=== PATIENT | male | born 1950 | race Caucasian/White ===

== ENCOUNTER 2017-03-07 08:44 | Emergency (ER) | payer OTHER ==
[~2017-03-07] VITALS: Ht 185.4 cm; Wt 105.0 kg
[2017-03-07] MEDS ORDERED: IOHEXOL 350 MG/ML 10 ML VIAL (for RAD DIAG) IVCONTRAST ONE (08:45)
[2017-03-07 08:48] VITALS: BP 189/109; PULSE 75; RESP 18; TEMP 97.8; O2SAT 99
[2017-03-07] MEDS ORDERED: ONDANSETRON HCL 4 MG/2 ML VIAL IV PUSH ONE (09:00)
[2017-03-07] MEDS ORDERED: MORPHINE SULFATE 4 MG/ML INJ IV PUSH ONE ×2 (09:00→10:00)
[2017-03-07] MEDS ORDERED: SODIUM CHLOR 0.9% 1000 ML INJ 1,000 ML IV SCH (09:00)
--- NOTE | 2017-03-07 09:00 | PD ---
HPI Chief Complaint: Abdominal Pain Time Seen by Provider: 08:52 Travel History International Travel<30 days: No Contact w/Intl Traveler<30days: No Traveled to known affect area: No History of Present Illness HPI 66-year-old male complains of abdominal pain. Patient states that the abdominal pain started last night. Patient states the pain is cramping pain and sharp pain started at the lower abdomen with radiation to the epigastric area and lower chest area. Patient denies any fever chills. Patient states that he has nausea but no vomiting or diarrhea. Patient has history of chronic constipation. Patient denies any headache. Patient denies any neck pain. Patient denies any shortness of breath. Patient denied dysuria or frequency. Patient denies any fever chills. Patient has history of kidney cancer status post left nephrectomy. PFSH Past Medical History High Cholesterol: Yes GERD: Yes Hypertension: Yes Psychiatric: Yes (PTSD) Past Surgical History Genitourinary Surgery: Yes (KIDNEY CA) Prostatectomy: Yes Tonsillectomy: Yes Social History Alcohol Use: Yes (OCC) Tobacco Use: No Substance Use: No Allergies-Medications (Allergen,Severity, Reaction): Coded Allergies: No Known Allergies (Unverified , 03/07/17) Reported Meds & Prescriptions Reported Meds & Active Scripts Active Reported Omeprazole 20 Mg Tab 20 Mg PO DAILY Amlodipine (Amlodipine Besylate) 10 Mg Tab 10 Mg PO DAILY Metoprolol Tartrate 25 Mg Tab 25 Mg PO BID Docusate Sodium-Senna (Sennosides-Docusate Sodium) 8.6-50 Mg Tab 2 Tab PO HS Tamsulosin (Tamsulosin HCl) 0.4 Mg Cap 0.4 Mg PO HS Atorvastatin (Atorvastatin Calcium) 20 Mg Tab 20 Mg PO HS Finasteride 5 Mg Tab 5 Mg PO DAILY Do not crush. Paroxetine (Paroxetine HCl) 20 Mg Tab 20 Mg PO DAILY Trospium ER 60 Mg Cap 20 Mg PO DAILY Lisinopril 40 Mg Tab 40 Mg PO DAILY Review of Systems General / Constitutional: No: Fever Eyes: No: Visual changes HENT: No: Headaches Cardiovascular: No: Chest Pain or Discomfort Respiratory: No: Shortness of Breath Gastrointestinal: Positive: Abdominal Pain Genitourinary: No: Dysuria Musculoskeletal: No: Pain Skin: No Rash Neurologic: No: Weakness Psychiatric: No: Depression Endocrine: No: Polydipsia Hematologic/Lymphatic: No: Easy Bruising Physical Exam Narrative GENERAL: Well-nourished, well-developed patient. SKIN: Focused skin assessment warm/dry. HEAD: Normocephalic. EYES: No scleral icterus. No injection or drainage. NECK: Supple, trachea midline. No JVD or lymphadenopathy. CARDIOVASCULAR: Regular rate and rhythm without murmurs, gallops, or rubs. RESPIRATORY: Breath sounds equal bilaterally. No accessory muscle use. GASTROINTESTINAL: Abdomen soft, nondistended. Patient has moderate tenderness on palpation epigastric and lower abdomen. No rebound tenderness. No mass. MUSCULOSKELETAL: No cyanosis, or edema. BACK: Nontender without obvious deformity. No CVA tenderness. Neurologic exam normal. Data Data Last Documented VS Vital Signs Date Time Temp Pulse Resp B/P (MAP) Pulse Ox O2 Delivery O2 Flow Rate FiO2 03/07/17 08:57 18 03/07/17 08:48 97.8 75 189/109 (135) 99 Orders Orders Electrocardiogram (03/07/17 08:52) Complete Blood Count With Diff (03/07/17 08:52) Comprehensive Metabolic Panel (03/07/17 08:52) Creatine Kinase (Cpk) (03/07/17 08:52) Troponin I (03/07/17 08:52) B-Type Natriuretic Peptide (03/07/17 08:52) Prothrombin Time / Inr (Pt) (03/07/17 08:52) Act Partial Throm Time (Ptt) (03/07/17 08:52) Lipase (03/07/17 08:52) Urinalysis - C+S If Indicated (03/07/17 08:52) Chest, Single Ap (03/07/17 08:52) Ct Abd/Pel W Iv Contrast(Rout) (03/07/17 08:52) Iv Access Insert/Monitor (03/07/17 08:52) Ecg Monitoring (03/07/17 08:52) Oximetry (03/07/17 08:52) Morphine Inj (Morphine Inj) (03/07/17 09:00) Ondansetron Inj (Zofran Inj) (03/07/17 09:00) Sodium Chlor 0.9% 1000 Ml Inj (Ns 1000 M (03/07/17 09:00) Morphine Inj (Morphine Inj) (03/07/17 10:00) Pantoprazole (Protonix) (03/07/17 11:00) Al-Mag Hy-Si 40-40-4 Mg/Ml Liq (Mag-Al P (03/07/17 11:00) Dfvwd-Smppiy-Ojtazw-Pb Liq ( Liq (03/07/17 11:00) Labs Laboratory Tests Test 03/07/17 09:00 White Blood Count 11.4 TH/MM3 Red Blood Count 4.82 MIL/MM3 Hemoglobin 14.0 GM/DL Hematocrit 41.2 % Mean Corpuscular Volume 85.4 FL Mean Corpuscular Hemoglobin 29.0 PG Mean Corpuscular Hemoglobin Concent 34.0 % Red Cell Distribution Width 14.2 % Platelet Count 270 TH/MM3 Mean Platelet Volume 8.4 FL Neutrophils (%) (Auto) 68.9 % Lymphocytes (%) (Auto) 23.8 % Monocytes (%) (Auto) 5.5 % Eosinophils (%) (Auto) 1.3 % Basophils (%) (Auto) 0.5 % Neutrophils # (Auto) 7.9 TH/MM3 Lymphocytes # (Auto) 2.7 TH/MM3 Monocytes # (Auto) 0.6 TH/MM3 Eosinophils # (Auto) 0.2 TH/MM3 Basophils # (Auto) 0.1 TH/MM3 CBC Comment DIFF FINAL Differential Comment Prothrombin Time 10.3 SEC Prothromb Time International Ratio 0.9 RATIO Activated Partial Thromboplast Time 25.7 SEC Blood Urea Nitrogen 16 MG/DL Creatinine 1.28 MG/DL Random Glucose 128 MG/DL Total Protein 7.9 GM/DL Albumin 3.7 GM/DL Calcium Level 9.5 MG/DL Alkaline Phosphatase 124 U/L Aspartate Amino Transf (AST/SGOT) 13 U/L Alanine Aminotransferase (ALT/SGPT) 32 U/L Total Bilirubin 0.4 MG/DL Sodium Level 138 MEQ/L Potassium Level 3.7 MEQ/L Chloride Level 103 MEQ/L Carbon Dioxide Level 24.3 MEQ/L Anion Gap 11 MEQ/L Estimat Glomerular Filtration Rate 56 ML/MIN Total Creatine Kinase 107 U/L Troponin I LESS THAN 0.02 NG/ML B-Type Natriuretic Peptide 64 PG/ML Lipase 151 U/L MDM Medical Decision Making Medical Screen Exam Complete: Yes Emergency Medical Condition: Yes Interpretation(s) Last Impressions Chest X-Ray 03/07/17 0852 Signed Impressions: Service Date/Time: Tuesday, March 07, 2017 08:50 - CONCLUSION: No acute cardiopulmonary abnormality is identified. Jeancarlos Winters MD Abdomen/Pelvis CT 03/07/17 0852 Signed Impressions: Service Date/Time: Tuesday, March 07, 2017 09:49 - CONCLUSION: 1. No acute finding is identified in the abdomen or pelvis to explain the clinical symptoms. 2. Nonacute findings include bilateral renal cysts and mild atherosclerotic disease. Jeancarlos Winters MD 10:47 AM. CBC within normal limit. CMP within normal limit. Cardiac enzymes are normal. Differential Diagnosis Differential diagnosis including gastritis, PUD, pancreatitis, cholecystitis, colitis, UTI, pyelonephritis, nephrolithiasis, angina, [place], PE, pneumothorax. Narrative Course 66-year-old male with abdominal pain with radiation to the chest. Normal saline solution 100 cc an hour. Morphine 2 mg IV. Zofran 4 mg IV. Morphine 2 mg IV. Diagnosis Primary Impression: Abdominal pain Qualified Codes: R10.13 - Epigastric pain Additional Impression: Gastritis Qualified Codes: K29.00 - Acute gastritis without bleeding Patient Instructions: General Instructions Additional Instructions: Take medications as directed. Follow-up with personal physician and GI specialist. Return if persistent problem or worse. Med/Other Pt SpecificInfo: Prescription(s) given Scripts Sucralfate (Carafate) 1 Gram Tab 1 GM PO QID for Ulcer Prevention, #120 TAB 0 Refills On empty stomach Prov: Diogo Voss MD 03/07/17 Disposition: 01 DISCHARGE HOME Condition: Stable Diogo Voss MD Mar 07, 2017 09:00
[2017-03-07] MEDS ORDERED: FINA5TAB2 PO (09:04)
[2017-03-07] MEDS ORDERED: TAMS0.4C4 PO (09:04)
[2017-03-07] MEDS ORDERED: DOCU8.6T PO (09:04)
[2017-03-07] MEDS ORDERED: METO25TA3 PO (09:04)
[2017-03-07] MEDS ORDERED: AMLO10TA2 PO (09:04)
[2017-03-07] MEDS ORDERED: ATOR20TA15 PO (09:04)
[2017-03-07] MEDS ORDERED: TROS60CA2 PO (09:04)
[2017-03-07] MEDS ORDERED: LISI40TA PO (09:04)
[2017-03-07] MEDS ORDERED: PARO20TA2 PO (09:04)
[2017-03-07] MEDS ORDERED: OMEP20TA PO (09:04)
--- NOTE | 2017-03-07 09:13 | RADRPT ---
EXAM DATE/TIME: 03/07/2017 08:50 [facility] COMPARISON: No previous studies available for comparison. INDICATIONS : Short of breath MEDICAL HISTORY : None. SURGICAL HISTORY : None. ENCOUNTER: Initial ACUITY: 2 days PAIN SCORE: 0/10 LOCATION: chest FINDINGS: Portable AP view of the chest demonstrates a normal-sized cardiac silhouette. No effusion, consolidat ion, or pneumothorax is visualized. The bones and soft tissues demonstrate no acute abnormality. Ther e are changes of the thoracic spine. CONCLUSION: No acute cardiopulmonary abnormality is identified. Jeancarlos Winters MD on March 07, 2017 at 9:11 Board Certified Radiologist. This report was verified electronically.
[2017-03-07 09:15] LABS: AUTOMATED NEUTROPHIL # 7.9 TH/MM3 (1.8-7.7); BASOPHIL # 0.1 TH/MM3 (0-0.2); BASOPHIL % 0.5 % (0.0-2.0); EOSINOPHIL # 0.2 TH/MM3 (0-0.4); EOSINOPHIL % 1.3 % (0.0-4.0); HEMATOCRIT 41.2 % (39.0-51.0); HEMO FLAGS DIFF FINAL; LYMPH % 23.8 % (9.0-44.0); LYMPHOCYTE # 2.7 TH/MM3 (1.0-4.8); MEAN CELL VOLUME 85.4 FL (80.0-100.0); MONO % 5.5 % (0.0-8.0); NEUT % 68.9 % (16.0-70.0); PLATELET COUNT 270 TH/MM3 (150-450); RED BLOOD COUNT 4.82 MIL/MM3 (4.50-5.90); RED CELL DISTRIBUTION WIDTH 14.2 % (11.6-17.2); WHITE BLOOD COUNT 11.4 TH/MM3 (4.0-11.0)
[2017-03-07 09:23] LABS: APTT (PATIENT) 25.7 SEC (24.3-30.1); INTERNATIONAL NORMALIZED RATIO 0.9 RATIO; PROTHROMBIN TIME - PATIENT 10.3 SEC (9.8-11.6)
[2017-03-07 09:32] LABS: ANION GAP 11 MEQ/L (5-15); AST (GOT) 13 U/L (15-37); BICARBONATE 24.3 MEQ/L (21.0-32.0); BLOOD UREA NITROGEN 16 MG/DL (7-18); CHLORIDE 103 MEQ/L (98-107); GLOMERULAR FILTRATION RATE 56 ML/MIN (>89); POTASSIUM 3.7 MEQ/L (3.5-5.1); SODIUM (NA) 138 MEQ/L (136-145)
[2017-03-07 09:33] LABS: ALT (GPT) 32 U/L (12-78)
[2017-03-07 09:37] LABS: ALKALINE PHOSPHATASE 124 U/L (45-117); CREATINE KINASE 107 U/L (39-308); TOTAL BILIRUBIN ADULT 0.4 MG/DL (0.2-1.0)
--- NOTE | 2017-03-07 10:08 | RADRPT ---
EXAM DATE/TIME: 03/07/2017 09:49 [facility] COMPARISON: No previous studies available for comparison. INDICATIONS : Abdominal pain.Upper abdomen. IV CONTRAST: 50 cc Visipaque (iodixanol) IV ORAL CONTRAST: No oral contrast ingested. RADIATION DOSE: 18.90 CTDIvol (mGy) MEDICAL HISTORY : Gastroesophageal reflux disease. Hypertension. Kidney cancer SURGICAL HISTORY : Prostatectomy. Inguinal hernia repair. ENCOUNTER: Initial ACUITY: 1 day PAIN SCALE: 6/10 LOCATION: abdominal TECHNIQUE: Volumetric scanning of the abdomen and pelvis was performed. Using automated exposure control and ad justment of the mA and/or kV according to patient size, radiation dose was kept as low as reasonably achievable to obtain optimal diagnostic quality images. DICOM format image data is available electro nically for review and comparison. FINDINGS: LOWER LUNGS: The visualized lower lungs demonstrate no acute finding. LIVER: Mildly heterogeneous density without focal lesion. Density may indicate steatosis. There is no dilat ion of the biliary tree. No calcified gallstones. SPLEEN: Normal size without lesion. PANCREAS: Within normal limits. KIDNEYS: Left kidney is posteriorly displaced. There are multiple low density lesions in the kidneys bilateral ly measuring up to 6.3 cm on the right and 3.2 cm and the left. These lesions have density measuremen ts characteristic of a simple cyst. Some subcentimeter lesions are too small to characterize. No hydr onephrosis or stone is visualized. ADRENAL GLANDS: There is an incidental 7 mm nodule in the left adrenal gland. Right adrenal gland is normal. VASCULAR: There is no aortic aneurysm. There is mild atherosclerotic disease. BOWEL/MESENTERY: The stomach, small bowel, and colon demonstrate no acute abnormality. There is no free intraperitone al air or fluid. ABDOMINAL WALL: Within normal limits. RETROPERITONEUM: There is no lymphadenopathy. BLADDER: No wall thickening or mass. REPRODUCTIVE: Within normal limits. INGUINAL: There is no lymphadenopathy or hernia. MUSCULOSKELETAL: There is degenerative changes of the lumbar spine. CONCLUSION: 1. No acute finding is identified in the abdomen or pelvis to explain the clinical symptoms. 2. Nonacute findings include bilateral renal cysts and mild atherosclerotic disease. Jeancarlos Winters MD on March 07, 2017 at 10:02 Board Certified Radiologist. This report was verified electronically.
[2017-03-07] MEDS ORDERED: CARA1TAB6 PO (10:57)
[2017-03-07] MEDS ORDERED: PANTOPRAZOLE SOD 40 MG DELAYED RELEASE TAB PO ONE (11:00)
[2017-03-07] MEDS ORDERED: ATROPINE/SCOPOLAM/HYOSCYAM/PB ELIXIR 10 ML CUP PO ONE (11:00)
[2017-03-07] MEDS ORDERED: ALUMINUM/MAGNESIUM/SIMETH 30 ML CUP PO ONE (11:00)
[2017-03-07 11:21] LABS: BLOOD, URINE NEG (NEG); COMMENT (UR) CULT NOT INDICATED; CULTURE IF INDICATED CULT NOT INDICATED; GLUCOSE,URINE NEG (NEG); KETONE, URINE 10 mg/dL (NEG); MUCUS URINE FEW /lpf (OCC); NITRITE,URINE NEG (NEG); PH, URINE 8.5 (5.0-8.5); URINE COLOR LIGHT-YELLOW (YELLW/STRAW)
--- NOTE | 2017-03-07 17:58 | EKG ---
Date Performed: 03/07/2017 Time Performed: 08:55:49 PTAGE: 66 years EKG: Sinus rhythm POSSIBLE LEFT ATRIAL ENLARGEMENT BORDERLINE ECG NO PREVIOUS TRACING DOCTOR: Chevy Bertrand Interpretating Date/Time 03/07/2017 17:58:04
== END 2017-03-07 11:34 | disposition home or self-care (01) ==
LOC: NEPE 08:44
DX: R10.13 Epigastric pain (principal); K29.00 Acute gastritis without bleeding; R07.9 Chest pain, unspecified; R94.31 Abnormal electrocardiogram [ECG] [EKG]; I10 Essential (primary) hypertension; E78.00 Pure hypercholesterolemia, unspecified; Z87.19 Personal history of other diseases of the digestive system; Z86.59 Personal history of other mental and behavioral disorders; Z85.528 Personal history of other malignant neoplasm of kidney
CPT/HCPCS: 71010; 74177; 80053; 81001; 82550; 83690; 83880; 84484; 85025; 85610; 85730; 93005; 96374; 96375; 96376; 99285; J2270; J2405; J7030; Q9967

== ENCOUNTER 2017-09-29 16:00 | Observation (INO) | payer OTHER ==
[~2017-09-29] VITALS: Ht 185.4 cm; Wt 95.0 kg
[~2017-09-29 16:00] MED LIST: AMLO10TA2 PO; ATOR20TA15 PO; CARA1TAB6 PO; DOCU8.6T PO; FINA5TAB2 PO; LISI40TA PO; METO25TA3 PO; OMEP20TA93 PO; PARO20TA2 PO; TAMS0.4C4 PO; TROS60CA2 PO
[2017-09-29 16:35] VITALS: BP 92/52; PULSE 65; RESP 16; TEMP 97.6; O2SAT 96
[2017-09-29] MEDS ORDERED: TRAZ50TA12 PO (19:36)
[2017-09-29] MEDS ORDERED: PARO30TA2 PO (19:36)
[2017-09-29] MEDS ORDERED: TROS60CA2 PO (19:36)
[2017-09-29] MEDS ORDERED: CALC600T4 PO (19:40)
[2017-09-29] MEDS ORDERED: POLY17S PO (19:40)
[2017-09-29] MEDS ORDERED: ASPI1TAB57 PO (19:40)
[2017-09-29] MEDS ORDERED: PLAV75TA29 PO (19:40)
[2017-09-29] MEDS ORDERED: ISOS20TA PO (19:40)
[2017-09-29] MEDS ORDERED: DIAZ5TAB PO (19:40)
[2017-09-29] MEDS ORDERED: VITA100018 PO (19:40)
[2017-09-29 19:42] VITALS: BP_SYST 146; BP_DIAS 81; BP_DIAS 83; PULSE 60; RESP 18; O2SAT 97
[2017-09-29 20:22] LABS: BILIRUBIN, URINE NEG (NEG); BLOOD, URINE NEG (NEG); GLUCOSE,URINE NEG (NEG); HYALINE CAST, URINE 2 /lpf (RARE); KETONE, URINE NEG (NEG); MUCUS URINE FEW /lpf (OCC); NITRITE,URINE NEG (NEG); URINE COLOR YELLOW (YELLW/STRAW); URINE LEUKOCYTE ESTERASE NEG (NEG)
[2017-09-29 20:48] LABS: ALBUMIN 3.4 GM/DL (3.4-5.0); AST (GOT) 9 U/L (15-37); BICARBONATE 29.2 MEQ/L (21.0-32.0); BLOOD UREA NITROGEN 18 MG/DL (7-18); CALCIUM 9.4 MG/DL (8.5-10.1); CHLORIDE 104 MEQ/L (98-107); CREATININE 1.57 MG/DL (0.60-1.30); GLOMERULAR FILTRATION RATE 44 ML/MIN (>89); GLUCOSE,RANDOM 93 MG/DL (74-106); SODIUM (NA) 139 MEQ/L (136-145)
[2017-09-29 20:49] LABS: ALT (GPT) 20 U/L (12-78)
[2017-09-29 20:53] LABS: ALKALINE PHOSPHATASE 135 U/L (45-117); TOTAL BILIRUBIN ADULT 0.3 MG/DL (0.2-1.0); TOTAL PROTEIN 7.7 GM/DL (6.4-8.2); TROPONIN I LESS THAN 0.02 NG/ML (0.02-0.05)
--- NOTE | 2017-09-29 21:00 | RADRPT ---
EXAM DATE/TIME: 09/29/2017 20:00 [facility] COMPARISON: CHEST SINGLE AP, March 07, 2017, 8:50. INDICATIONS : Chest pain. MEDICAL HISTORY : None. SURGICAL HISTORY : None. ENCOUNTER: Initial ACUITY: 1 day PAIN SCORE: 0/10 LOCATION: Bilateral chest FINDINGS: Minimal bibasilar parenchymal changes worse on the left. Mild compensated cardiomegaly. No overt co ngestive failure. No pleural effusion. The portion of the bony skeleton visualized is unremarkable. CONCLUSION: Mild bibasilar probable changes worse in the left, new from comparison study. No chente lure Brett Small MD FACR on September 29, 2017 at 20:54 Board Certified Radiologist. This report was verified electronically.
[2017-09-29 21:01] VITALS: BP_SYST 146; BP_SYST 159; BP_DIAS 81; BP_DIAS 85; PULSE 62; RESP 16; O2SAT 96
[2017-09-29 21:30] VITALS: BP_SYST 106; BP_SYST 112; BP_SYST 146; BP_DIAS 56; BP_DIAS 71; BP_DIAS 85
[2017-09-29 21:53] LABS: AUTOMATED NEUTROPHIL # 4.4 TH/MM3 (1.8-7.7); BASOPHIL % 0.5 % (0.0-2.0); EOSINOPHIL # 0.3 TH/MM3 (0-0.4); EOSINOPHIL % 3.3 % (0.0-4.0); HEMATOCRIT 38.7 % (39.0-51.0); HEMOGLOBIN 12.8 GM/DL (13.0-17.0); LYMPH % 33.1 % (9.0-44.0); LYMPHOCYTE # 2.6 TH/MM3 (1.0-4.8); MEAN CELL VOLUME 84.1 FL (80.0-100.0); MEAN CORPUSCULAR HEMOGLOBIN 27.9 PG (27.0-34.0); MEAN CORPUSCULAR HGB CONC 33.1 % (32.0-36.0); MEAN PLATELET VOLUME 8.7 FL (7.0-11.0); MONOCYTE # 0.6 TH/MM3 (0-0.9); NEUT % 56.1 % (16.0-70.0); PLATELET COUNT 270 TH/MM3 (150-450); WHITE BLOOD COUNT 7.9 TH/MM3 (4.0-11.0)
--- NOTE | 2017-09-29 21:54 | PD ---
HPI Chief Complaint: Abnormal Results Time Seen by Provider: 19:20 Travel History International Travel<30 days: No Contact w/Intl Traveler<30days: No Traveled to known affect area: No History of Present Illness HPI Patient is a 67-year-old male who has history of coronary artery disease for which he had a stent placed in June of this year as well as 3 more stents placed in July of this year. Since that time he has had episodes of hypotension that have been documented by him in his daily journal 10 AM each morning he takes his BP and is constantly fluctuating but usually below 90/60 today was 75/50. Patient had been taken off of amlodipine as well as lisinopril thinking those meds were causing the hypotension. Patient is still on metoprolol 25 twice daily. Isosorbide 30 mg daily as well as Flomax 0.4 mg daily all of which could be lowering his BP. Today he is coming into the ER because again an episode of hypotension and dizziness. [facility] he is [facility] them for this problem but today and not in the last week the dizziness is generalized it is progressively getting worse the hypotension is getting worse and why he comes to the ER tonight. He also feels is not being served correctly at the [facility] for this issue denies shortness of breath or chest pain tonight however he has had chest pain over the last few days he reports. Patient took all of his medications about an hour prior to his BP reading which again was 75/50 in the ER he is hypertensive and then he is hypotensive he had orthostatics done his systolic went from 146 down to 106 his BP is very labile PFSH Past Medical History Depression: Yes High Cholesterol: Yes Coronary Artery Disease: Yes GERD: Yes Hypertension: Yes Psychiatric: Yes (PTSD) Past Surgical History Coronary Stent: Yes Genitourinary Surgery: Yes (KIDNEY CA) Prostatectomy: Yes Tonsillectomy: Yes Social History Alcohol Use: No Tobacco Use: No Substance Use: No Allergies-Medications (Allergen,Severity, Reaction): Coded Allergies: No Known Allergies (Unverified Allergy, Unknown, 09/29/17) Reported Meds & Prescriptions Reported Meds & Active Scripts Active Reported Vitamin D3 (Cholecalciferol) 1,000 Unit Tab 1,000 Units PO DAILY Calcium Carbonate 1,500 Mg Tab 1,500 Mg PO BID 1,500 mg calcium carbonate (600 mg elemental calcium) Aspirin 81 (Aspirin) 81 Mg Tabdr 81 Mg PO DAILY Polyethylene Glycol 3350 Powder (Polyethylene Glycol) 17 Gram Pow 17 Gm PO DAILY Isosorbide Mononitrate 20 Mg Tab 30 Mg PO DAILY Take 2 doses 7 hours apart. Diazepam 5 Mg Tab 5 Mg PO BID PRN Plavix (Clopidogrel Bisulfate) 75 Mg Tab 75 Mg PO DAILY Trospium ER 60 Mg Cap 20 Mg PO BID Trazodone (Trazodone HCl) 50 Mg Tab 50 Mg PO HS Paroxetine (Paroxetine HCl) 30 Mg Tab 30 Mg PO HS Omeprazole 20 Mg Tab 20 Mg PO DAILY Amlodipine (Amlodipine Besylate) 10 Mg Tab 10 Mg PO DAILY Metoprolol Tartrate 25 Mg Tab 25 Mg PO BID Docusate Sodium-Senna (Sennosides-Docusate Sodium) 8.6-50 Mg Tab 2 Tab PO HS Tamsulosin (Tamsulosin HCl) 0.4 Mg Cap 0.4 Mg PO HS Atorvastatin (Atorvastatin Calcium) 20 Mg Tab 20 Mg PO HS Finasteride 5 Mg Tab 5 Mg PO DAILY Do not crush. Trospium ER 60 Mg Cap 20 Mg PO DAILY Lisinopril 40 Mg Tab 40 Mg PO DAILY Review of Systems Except as stated in HPI: all other systems reviewed are Neg Cardiovascular: Positive: Other (hypotension episodes weakness ) Neurologic: Positive: Dizziness Physical Exam Narrative GENERAL: Patient is awake alert he is slowly slow to answer and reports forgetfulness SKIN: Warm and dry. HEAD: Atraumatic. Normocephalic. EYES: Pupils equal and round. No scleral icterus. No injection or drainage. ENT: No nasal bleeding or discharge. Mucous membranes pink and moist. NECK: Trachea midline. No JVD. CARDIOVASCULAR: Regular rate and rhythm. RESPIRATORY: No accessory muscle use. Patient has bibasilar crackles rales GASTROINTESTINAL: Abdomen soft, non-tender, nondistended. Hepatic and splenic margins not palpable. MUSCULOSKELETAL: Extremities without clubbing, cyanosis, or edema. No obvious deformities. NEUROLOGICAL: Awake and alert. No obvious cranial nerve deficits. Motor grossly within normal limits. Five out of 5 muscle strength in the arms and legs. Normal speech. PSYCHIATRIC: Appropriate mood and affect; insight and judgment normal. Data Data Last Documented VS Vital Signs Date Time Temp Pulse Resp B/P (MAP) Pulse Ox O2 Delivery O2 Flow Rate FiO2 09/29/17 21:30 60 146/85 (105) 62 112/71 (85) 65 106/56 (73) 09/29/17 21:01 16 96 Room Air 09/29/17 16:35 97.6 Orders Orders Urinalysis - C+S If Indicated (09/29/17 18:44) Electrocardiogram (09/29/17 19:39) Complete Blood Count With Diff (09/29/17 19:39) Comprehensive Metabolic Panel (09/29/17 19:39) Creatine Kinase (Cpk) (09/29/17 19:39) Troponin I (09/29/17 19:39) Lipase (09/29/17 19:39) Chest, Single Ap (09/29/17 19:39) B-Type Natriuretic Peptide (09/29/17 21:32) Admit Order (Ed Use Only) (09/29/17 22:59) Labs Laboratory Tests Test 09/29/17 18:45 09/29/17 19:45 09/29/17 21:26 Urine Color YELLOW Urine Turbidity CLEAR Urine pH 6.0 Urine Specific [place] 1.022 Urine Protein TRACE mg/dL Urine Glucose (UA) NEG mg/dL Urine Ketones NEG mg/dL Urine Occult Blood NEG Urine Nitrite NEG Urine Bilirubin NEG Urine Urobilinogen LESS THAN 2.0 MG/DL Urine Leukocyte Esterase NEG Urine RBC LESS THAN 1 /hpf Urine WBC 1 /hpf Urine Hyaline Casts 2 /lpf Urine Mucus FEW /lpf Microscopic Urinalysis Comment CULT NOT INDICATED Blood Urea Nitrogen 18 MG/DL Creatinine 1.57 MG/DL Random Glucose 93 MG/DL Total Protein 7.7 GM/DL Albumin 3.4 GM/DL Calcium Level 9.4 MG/DL Alkaline Phosphatase 135 U/L Aspartate Amino Transf (AST/SGOT) 9 U/L Alanine Aminotransferase (ALT/SGPT) 20 U/L Total Bilirubin 0.3 MG/DL Sodium Level 139 MEQ/L Potassium Level 3.7 MEQ/L Chloride Level 104 MEQ/L Carbon Dioxide Level 29.2 MEQ/L Anion Gap 6 MEQ/L Estimat Glomerular Filtration Rate 44 ML/MIN Total Creatine Kinase 43 U/L Troponin I LESS THAN 0.02 NG/ML Lipase 75 U/L White Blood Count 7.9 TH/MM3 Red Blood Count 4.60 MIL/MM3 Hemoglobin 12.8 GM/DL Hematocrit 38.7 % Mean Corpuscular Volume 84.1 FL Mean Corpuscular Hemoglobin 27.9 PG Mean Corpuscular Hemoglobin Concent 33.1 % Red Cell Distribution Width 15.0 % Platelet Count 270 TH/MM3 Mean Platelet Volume 8.7 FL Neutrophils (%) (Auto) 56.1 % Lymphocytes (%) (Auto) 33.1 % Monocytes (%) (Auto) 7.0 % Eosinophils (%) (Auto) 3.3 % Basophils (%) (Auto) 0.5 % Neutrophils # (Auto) 4.4 TH/MM3 Lymphocytes # (Auto) 2.6 TH/MM3 Monocytes # (Auto) 0.6 TH/MM3 Eosinophils # (Auto) 0.3 TH/MM3 Basophils # (Auto) 0.0 TH/MM3 CBC Comment DIFF FINAL Differential Comment B-Type Natriuretic Peptide 118 PG/ML [facility] Medical Decision Making Medical Screen Exam Complete: Yes Emergency Medical Condition: Yes Differential Diagnosis Frontal diagnosis includes medication reaction causing hypotension and bradycardia. Versus cardiac conduction issues versus hypovolemia versus interaction of multiple medications causing hypotension Narrative Course Patient has orthostatics were his systolic goes from 146 lying to 106 standing becomes dizzy and pale patient's EKG is normal sinus rhythm his troponin is less than 0.02 his H&H is normal there is no sign of anemia he will need to be admitted for reevaluation of his medication possibly he needs a discontinuation of isosorbide or decreasing in the metoprolol he also is on Flomax possibly needs echocardiogram admit to telemetry for intermittent hypotension Rao Barreto MD Sep 29, 2017 21:54
[2017-09-29] MEDS ORDERED: SODIUM CHLORIDE 0.9% FLUSH 10 ML FLUSH IV FLUSH PRN (23:30)
[2017-09-29] MEDS ORDERED: ACETAMINOPHEN 325 MG TAB PO PRN (23:30)
[2017-09-29] MEDS ORDERED: DIAZEPAM 5 MG TAB PO PRN (23:30)
[2017-09-29] MEDS ORDERED: ONDANSETRON HCL 4 MG/2 ML VIAL IVP PRN (23:30)
[2017-09-29] MEDS ORDERED: NALOXONE HCL 0.4 MG/ML AMP IV PUSH PRN (23:30)
[2017-09-29] MEDS ORDERED: PILL SPLITTER OTHER PRN (23:45)
[2017-09-30] VITALS (13 sets, daily range): BP systolic 109–222; BP diastolic 64–115; PULSE 59–98; RESP 14–20; TEMP 97.6–98.2; O2SAT 93–97
[2017-09-30] MEDS: ATORVASTATIN 20 MG TAB PO SCH ×2 (00:13→21:22)
[2017-09-30] MEDS: traZODone HCL 50 MG TAB PO SCH ×2 (00:13→21:22)
[2017-09-30] MEDS: DOCUSATE SODIUM 50 MG/SENNA 8.6 MG TAB PO SCH ×2 (00:14→21:22)
[2017-09-30] MEDS: PARoxetine HCL 20 MG TAB PO SCH ×2 (00:14→21:22)
--- NOTE | 2017-09-30 00:28 | HHI.HP ---
[facility] Admission Diagnosis HYPOTENSION DIZZINESS Diagnoses: Travel History International Travel<30 Days: No Contact w/Intl Traveler <30 Da: No Traveled to Known Affected Are: No History of Present Illness 67-year-old male with a past medical history significant for hypertension, coronary artery disease, prostate cancer and history of renal cell carcinoma presents to the emergency department for hypotension and syncopal event. The patient reports that for approximately the last month his blood pressure has been running in the 60s/40s. He endorses routine dizziness upon standing. He states that yesterday when he got out of bed to use the restroom he had a syncopal event while standing at the toilet. He states he lost consciousness and fell backward. Denies any head trauma or pain. Patient also endorses intermittent chest pain for the past 2-3 days. He states that is now resolved. He has accompanying shortness of breath. He also complains of constipation. No nausea/vomiting/diarrhea. No abdominal pain. No lateralizing signs/ symptoms. Review of Systems Except as stated in HPI: all other systems reviewed are Neg Past Family Social History Past Medical History Hypertension Coronary artery disease Prostate cancer History of renal cell carcinoma Hyperlipidemia Past Surgical History Stent 5 approximately 1 month ago Partial prostatectomy Partial left nephrectomy Reported Medications Reported Meds & Active Scripts Active Reported Vitamin D3 (Cholecalciferol) 1,000 Unit Tab 1,000 Units PO DAILY Calcium Carbonate 1,500 Mg Tab 1,500 Mg PO BID 1,500 mg calcium carbonate (600 mg elemental calcium) Aspirin 81 (Aspirin) 81 Mg Tabdr 81 Mg PO DAILY Polyethylene Glycol 3350 Powder (Polyethylene Glycol) 17 Gram Pow 17 Gm PO DAILY Isosorbide Mononitrate 20 Mg Tab 30 Mg PO DAILY Take 2 doses 7 hours apart. Diazepam 5 Mg Tab 5 Mg PO BID PRN Plavix (Clopidogrel Bisulfate) 75 Mg Tab 75 Mg PO DAILY Trospium ER 60 Mg Cap 20 Mg PO BID Trazodone (Trazodone HCl) 50 Mg Tab 50 Mg PO HS Paroxetine (Paroxetine HCl) 30 Mg Tab 30 Mg PO HS Omeprazole 20 Mg Tab 20 Mg PO DAILY Amlodipine (Amlodipine Besylate) 10 Mg Tab 10 Mg PO DAILY Metoprolol Tartrate 25 Mg Tab 25 Mg PO BID Docusate Sodium-Senna (Sennosides-Docusate Sodium) 8.6-50 Mg Tab 2 Tab PO HS Tamsulosin (Tamsulosin HCl) 0.4 Mg Cap 0.4 Mg PO HS Atorvastatin (Atorvastatin Calcium) 20 Mg Tab 20 Mg PO HS Finasteride 5 Mg Tab 5 Mg PO DAILY Do not crush. Trospium ER 60 Mg Cap 20 Mg PO DAILY Lisinopril 40 Mg Tab 40 Mg PO DAILY Allergies: Coded Allergies: No Known Allergies (Unverified Allergy, Unknown, 09/29/17) Family History Mother with CAD Social History Negative for tobacco. Rare alcohol. Denies illicit drugs. Physical Exam Vital Signs Vital Signs Date Time Temp Pulse Resp B/P (MAP) Pulse Ox O2 Delivery O2 Flow Rate FiO2 09/29/17 21:30 60 146/85 (105) 62 112/71 (85) 65 106/56 (73) 09/29/17 21:01 62 16 159/81 (107) 96 Room Air 146/85 (105) 09/29/17 19:42 60 18 146/81 (102) 97 Room Air 146/83 (104) 09/29/17 16:35 97.6 65 16 92/52 (65) 96 Physical Exam GENERAL: male sitting up in bed SKIN: No rashes, ecchymoses or lesions. Cool and dry. HEAD: Atraumatic. Normocephalic. No temporal or scalp tenderness. EYES: Pupils equal round and reactive. Extraocular motions intact. No scleral icterus. No injection or drainage. ENT: Nose without bleeding, purulent drainage or septal hematoma. Throat without erythema, tonsillar hypertrophy or exudate. Uvula midline. Airway patent. NECK: Trachea midline. No JVD or lymphadenopathy. Supple, nontender, no meningeal signs. CARDIOVASCULAR: Regular rate and rhythm without murmurs, gallops, or rubs. RESPIRATORY: Clear to auscultation. Breath sounds equal bilaterally. No wheezes , rales, or rhonchi. GASTROINTESTINAL: Abdomen soft, non-tender, nondistended. No hepato-splenomegaly , or palpable masses. No guarding. MUSCULOSKELETAL: Extremities without clubbing, cyanosis, or edema. No joint tenderness, effusion, or edema noted. No calf tenderness. NEUROLOGICAL: Awake and alert. Cranial nerves II through XII intact. Motor and sensory grossly within normal limits. Normal speech. Laboratory Laboratory Tests Test 09/29/17 18:45 09/29/17 19:45 09/29/17 21:26 Urine Color YELLOW Urine Turbidity CLEAR Urine pH 6.0 Urine Specific Fisk 1.022 Urine Protein TRACE Urine Glucose (UA) NEG Urine Ketones NEG Urine Occult Blood NEG Urine Nitrite NEG Urine Bilirubin NEG Urine Urobilinogen LESS THAN 2.0 Urine Leukocyte Esterase NEG Urine RBC LESS THAN 1 Urine WBC 1 Urine Hyaline Casts 2 Urine Mucus FEW Microscopic Urinalysis Comment CULT NOT INDICATED Blood Urea Nitrogen 18 Creatinine 1.57 Random Glucose 93 Total Protein 7.7 Albumin 3.4 Calcium Level 9.4 Alkaline Phosphatase 135 Aspartate Amino Transf (AST/SGOT) 9 Alanine Aminotransferase (ALT/SGPT) 20 Total Bilirubin 0.3 Sodium Level 139 Potassium Level 3.7 Chloride Level 104 Carbon Dioxide Level 29.2 Anion Gap 6 Estimat Glomerular Filtration Rate 44 Total Creatine Kinase 43 Troponin I LESS THAN 0.02 Lipase 75 White Blood Count 7.9 Red Blood Count 4.60 Hemoglobin 12.8 Hematocrit 38.7 Mean Corpuscular Volume 84.1 Mean Corpuscular Hemoglobin 27.9 Mean Corpuscular Hemoglobin Concent 33.1 Red Cell Distribution Width 15.0 Platelet Count 270 Mean Platelet Volume 8.7 Neutrophils (%) (Auto) 56.1 Lymphocytes (%) (Auto) 33.1 Monocytes (%) (Auto) 7.0 Eosinophils (%) (Auto) 3.3 Basophils (%) (Auto) 0.5 Neutrophils # (Auto) 4.4 Lymphocytes # (Auto) 2.6 Monocytes # (Auto) 0.6 Eosinophils # (Auto) 0.3 Basophils # (Auto) 0.0 CBC Comment DIFF FINAL Differential Comment B-Type Natriuretic Peptide 118 Result Diagram: 09/29/17212509/29/171944 Caprini VTE Risk Assessment Caprini VTE Risk Assessment: Mod/High Risk (score >= 2) Caprini Risk Assessment Model Point Value = 1 Point Value = 2 Point Value = 3 Point Value = 5 Age 41-60 Minor surgery BMI > 25 kg/m2 Swollen legs Varicose veins or History of unexplained or recurrent spontaneous Oral contraceptives or hormone replacement Sepsis (< 1 month) Serious lung disease, including pneumonia (< 1 month) Abnormal pulmonary function Acute myocardial infarction Congestive heart failure (< 1 month) History of inflammatory bowel disease Medical patient at bed rest Age 61-74 Arthroscopic surgery Major open surgery (> 45 min) Laparoscopic surgery (> 45 min) Malignancy Confined to bed (> 72 hours) Immobilizing plaster cast Central venous access Age >= 75 History of VTE Family history of VTE Factor V Leiden Prothrombin [id number] Lupus anticoagulant Anticardiolipin antibodies Elevated serum homocysteine Heparin-induced thrombocytopenia Other congenital or acquired thrombophilia Stroke (< 1 month) Elective arthroplasty Hip, pelvis, or leg fracture Acute spinal cord injury (< 1 month) Prophylaxis Regimen Total Risk Factor Score Risk Level Prophylaxis Regimen 0-1 Low Early ambulation 2 Moderate Order ONE of the following: *Sequential Compression Device (SCD) *Heparin 5000 units SQ BID 3-4 Higher Order ONE of the following medications: *Heparin 5000 units SQ TID *Enoxaparin/Lovenox 40 mg SQ daily (WT < 150 kg, CrCl > 30 mL/min) *Enoxaparin/Lovenox 30 mg SQ daily (WT < 150 kg, CrCl > 10-29 mL/min) *Enoxaparin/Lovenox 30 mg SQ BID (WT < 150 kg, CrCl > 30 mL/min) AND/OR *Sequential Compression Device (SCD) 5 or more Highest Order ONE of the following medications: *Heparin 5000 units SQ TID (Preferred with Epidurals) *Enoxaparin/Lovenox 40 mg SQ daily (WT < 150 kg, CrCl > 30 mL/min) *Enoxaparin/Lovenox 30 mg SQ daily (WT < 150 kg, CrCl > 10-29 mL/min) *Enoxaparin/Lovenox 30 mg SQ BID (WT < 150 kg, CrCl > 30 mL/min) AND *Sequential Compression Device (SCD) Assessment and Plan Assessment and Plan Assessment/plan: 1. Symptomatic hypotension with syncopal episode Orthostatic vital signs pending Holding home isosorbide mononitrate, metoprolol, amlodipine, lisinopril, Valium Telemetry Syncope likely secondary to hypotension 2. Chest pain Patient with cardiac history and 2-3 day history of chest pain Initial troponin negative EKG pending ACS rule out pending; serial troponins/EKG 3. Coronary artery disease Status post stenting Continue aspirin/Plavix 4. Hyperlipidemia Continue home statin 5. BPH/prostate cancer Continue home Flomax 6. Acute kidney injury Likely chronic component Creatinine 1.57, was 1.28 in February 2017 Monitor renal function IV fluid hydration FEN Heart healthy diet Electrolytes: Monitor and replete when necessary Heparin Maye Garrett MD Sep 30, 2017 00:28
[2017-09-30] MEDS: SODIUM CHLOR 0.9% 1000 ML INJ 1,000 ML IV SCH ×3 (01:19→21:23)
[2017-09-30] MEDS ORDERED: traMADol HCL 50 MG TAB PO ONE (02:00)
[2017-09-30 04:31] LABS: AUTOMATED NEUTROPHIL # 5.3 TH/MM3 (1.8-7.7); BASOPHIL % 0.2 % (0.0-2.0); EOSINOPHIL # 0.3 TH/MM3 (0-0.4); EOSINOPHIL % 3.3 % (0.0-4.0); HEMATOCRIT 36.8 % (39.0-51.0); HEMOGLOBIN 12.6 GM/DL (13.0-17.0); LYMPH % 32.7 % (9.0-44.0); LYMPHOCYTE # 3.1 TH/MM3 (1.0-4.8); MEAN CELL VOLUME 83.7 FL (80.0-100.0); MEAN CORPUSCULAR HEMOGLOBIN 28.7 PG (27.0-34.0); MEAN CORPUSCULAR HGB CONC 34.3 % (32.0-36.0); MEAN PLATELET VOLUME 8.7 FL (7.0-11.0); MONOCYTE # 0.7 TH/MM3 (0-0.9); NEUT % 56.8 % (16.0-70.0); PLATELET COUNT 256 TH/MM3 (150-450); RED BLOOD COUNT 4.39 MIL/MM3 (4.50-5.90); RED CELL DISTRIBUTION WIDTH 14.8 % (11.6-17.2); WHITE BLOOD COUNT 9.4 TH/MM3 (4.0-11.0)
[2017-09-30 04:59] LABS: BICARBONATE 28.9 MEQ/L (21.0-32.0); CALCIUM 8.7 MG/DL (8.5-10.1); CREATININE 1.43 MG/DL (0.60-1.30)
[2017-09-30 05:03] LABS: TROPONIN I LESS THAN 0.02 NG/ML (0.02-0.05)
[2017-09-30] MEDS: HEPARIN SODIUM - SQ 10,000 UNITS/ML VIAL SQ SCH ×3 (05:23→21:24)
[2017-09-30] MEDS ORDERED: POTASSIUM CHLORIDE 20 MEQ CONTROLLED RELEASE TAB PO ONE (08:00)
--- NOTE | 2017-09-30 09:17 | HHI.PR ---
Subjective Remarks Follow up for hypotension, syncope, chest pain. The patient reports feeling much better today. Denies any lightheadedness, dizziness, chest pain, or shortness of breath currently. He states he has been having intermittent lightheadedness associated with low BP at home. He states he contacted his physician who adjusted his meds however he is unable to tell me which meds were adjusted. He also reports over the past few weeks, he's had intermittent left anterior chest pains described as pressure, relieved with nitro. He states he had a cardiac catheterization with 5 stents placed just one month ago at the [facility] in [place]. He reports compliance with his medications. He denies any other medical complaints at this time. Objective Vitals Vital Signs Date Time Temp Pulse Resp B/P (MAP) Pulse Ox O2 Delivery O2 Flow Rate FiO2 09/30/17 08:33 97.6 64 18 206/103 (137) 95 181/87 (118) 109/64 (79) 09/30/17 05:09 98.1 59 14 174/77 (109) 97 09/30/17 04:03 60 09/30/17 01:30 98.2 62 14 170/81 (110) 96 09/30/17 00:47 09/30/17 00:18 64 18 168/85 (112) 95 Room Air 09/29/17 21:30 60 146/85 (105) 62 112/71 (85) 65 106/56 (73) 09/29/17 21:01 62 16 159/81 (107) 96 Room Air 146/85 (105) 09/29/17 19:42 60 18 146/81 (102) 97 Room Air 146/83 (104) 09/29/17 16:35 97.6 65 16 92/52 (65) 96 I/O 09/29/17 09/29/17 09/29/17 09/30/17 09/30/17 09/30/17 07:00 15:00 23:00 07:00 15:00 23:00 Intake Total 940 ml Balance 940 ml Intake Oral 940 ml Result Diagram: 09/30/17 0335 09/30/17 0335 Imaging Last Impressions Chest X-Ray 09/29/171938 Signed Impressions: Service Date/Time: Friday, September 29, 2017 20:00 - CONCLUSION: Mild bibasilar probable changes worse in the left, new from comparison study. No failure Brett Small MD FACR Objective Remarks GENERAL: Well-nourished, well-developed pleasant male patient in NAD. SKIN: Warm and dry. No rash. HEENT: Normocephalic. Atraumatic. Pupils equal and round. Mucous membranes pink and moist. NECK: Supple. Trachea midline. CARDIOVASCULAR: Regular rate and rhythm. No murmur appreciated. RESPIRATORY: No accessory muscle use. Clear to auscultation. Breath sounds equal bilaterally. GASTROINTESTINAL: Abdomen soft, non-tender, nondistended. Normoactive bowel sounds x4. MUSCULOSKELETAL: No obvious deformities. Extremities without clubbing, cyanosis , or edema. NEUROLOGICAL: Awake and alert. No obvious cranial nerve deficits. Motor grossly within normal limits. Normal speech. PSYCHIATRIC: Appropriate mood and affect; insight and judgment normal. Medications and IVs Current Medications Medications (Trade) Dose Ordered Sig/Tiffanie Route Start Time Stop Time Status Last Admin (NS Flush) 2 ml UNSCH PRN IV FLUSH 09/29/17 23:30 (NS Flush) 2 ml BID IV FLUSH 09/30/17 09:00 09/30/17 09:19 (Tylenol) 650 mg Q4H PRN PO 09/29/17 23:30 (Zofran Inj) 4 mg Q6H PRN IVP 09/29/17 23:30 (Heparin Inj) 5,000 units Q8HR SQ 09/30/17 06:00 09/30/17 05:23 (Narcan Inj) 0.4 mg UNSCH PRN IV PUSH 09/29/17 23:30 (Ecotrin Ec) 81 mg DAILY PO 09/30/17 09:00 09/30/17 09:20 (Lipitor) 20 mg HS PO 09/29/17 23:30 09/30/17 00:13 (Plavix) 75 mg DAILY PO 09/30/17 09:00 09/30/17 09:20 (Marlena-Colace) 2 tab HS PO 09/29/17 23:30 09/30/17 00:14 (Desyrel) 50 mg HS PO 09/29/17 23:30 09/30/17 00:13 (Protonix) 20 mg DAILY PO 09/30/17 09:00 09/30/17 09:20 (Paxil) 30 mg HS PO 09/29/17 23:45 09/30/17 00:14 (Detrol La) 4 mg DAILY PO 09/30/17 09:00 09/30/17 09:20 (Pill Splitter) 1 ea UNSCH PRN OTHER 09/29/17 23:45 Sodium Chloride 1,000 ml @ 100 mls/hr Q10H IV 09/30/17 00:30 09/30/17 09:25 (Miralax) 17 gm DAILY PO 09/30/17 09:15 09/30/17 09:23 A/P Assessment and Plan 67-year-old male with history of HTN, HLD, CAD s/p stents 5 placed one month ago, prostate cancer, previous renal cell carcinoma, presents with hypotension, syncope, and chest pain. Symptomatic Hypotension with Syncope: BP reportedly 60/40s at home, arrived with BP 92/52. Likely secondary to multiple antihypertensives. -Held all of patient's antihypertensives including imdur, metoprolol, amlodipine, lisinopril, and also hold patient's Valium -Orthostatic vital signs positive -Give IVF hydration -Monitor on telemetry -Check echocardiogram -Strongly suspect syncope secondary to hypotension; symptoms resolved with resolution of hypotension Chest pain with hx of CAD s/p stents: concern for unstable angina. Patient reported cardiac cath with 5stents placed 1 month ago. Now having intermittent chest pressure, relieved by nitro at home. -ACS ruled out with negative serial cardiac enzymes x3 -EKG without acute ischemic changes -Monitor on telemetry -Continue aspirin/plavix; holding BB/SMITA/Imdur secondary to hypotension -Check echo -Obtain records from previous cardiac catheterization at the [facility] -Consult cardiology Hyperlipidemia: chronic -Continue home statin BPH/prostate cancer: chronic -Continue home Flomax Acute kidney injury: likely chronic component. Creatinine 1.57, previously 1.28 in February 2017 -Avoid nephrotoxins -Monitor renal function -Continue IV fluid hydration DVT Prophylaxis: Heparin sq Lillian Gore PA-C Sep 30, 2017 9:17 am
[2017-09-30] MEDS: SODIUM CHLORIDE 0.9% FLUSH 10 ML FLUSH IV FLUSH SCH ×2 (09:19→21:00)
[2017-09-30] MEDS: PANTOPRAZOLE SOD 20 MG DELAYED RELEASE TAB PO SCH (09:20)
[2017-09-30] MEDS: CLOPIDOGREL 75 MG TAB PO SCH (09:20)
[2017-09-30] MEDS: ASPIRIN EC 81 MG TABEC PO SCH (09:20)
[2017-09-30] MEDS: TOLTERODINE TARTRATE 4 MG CAP LA PO SCH (09:20)
[2017-09-30] MEDS: POLYETHYLENE GLYCOL 17 GM PKG PO SCH (09:23)
[2017-09-30 10:17] LABS: TROPONIN I LESS THAN 0.02 NG/ML (0.02-0.05)
--- NOTE | 2017-09-30 13:46 | EKG ---
Date Performed: 09/29/2017 Time Performed: 19:35:20 PTAGE: 67 years EKG: Sinus rhythm WITH FIRST DEGREE AV BLOCK ABNORMAL ECG Since the PREVIOUS TRACING , no significant change noted PREVIOUS TRACIN03/07/2017 08.55 DOCTOR: Meryl Enamorado Interpretating Date/Time 09/30/2017 13:42:23
[2017-09-30] MEDS ORDERED: amLODIPine BESYLATE 5 MG TAB PO SCH (16:30)
--- NOTE | 2017-09-30 16:45 | ECHRPT ---
Indication: CHEST PAIN CONCLUSIONS The left ventricular systolic function is normal with an estimated ejection fraction in the range of 60-65%. Normal left ventricular size. Mild concentric left ventricular hypertrophy. No regional wall motion abnormalities are present. [id number]-[id number] mitral valve regurgitation. Mild aortic valve sclerosis is present. Trace-mild aortic regurgitation. BP: / HR: Rhythm: Sinus Technical Quality:Poor FINDINGS LEFT VENTRICLE The left ventricular systolic function is normal with an estimated ejection fraction in the range of 60-65%. Normal left ventricular size. Mild concentric left ventricular hypertrophy. No regional wall motion abnormalities are present. RIGHT VENTRICLE Normal right ventricular size and systolic function. LEFT ATRIUM The left atrial size is normal. RIGHT ATRIUM The right atrial size is normal. ATRIAL SEPTUM Normal atrial septal thickness without atrial level shunting by limited color doppler interrogation. AORTA The aortic root and proximal ascending aorta are normal in size on limited imaging. MITRAL VALVE Structurally normal mitral valve. Lssrz-nl-nuib mitral valve regurgitation. AORTIC VALVE Trileaflet aortic valve. Mild aortic valve sclerosis is present. Trace-mild aortic regurgitation. TRICUSPID VALVE Structurally normal tricuspid valve. No tricuspid valve stenosis or regurgitation. PULMONARY VALVE The pulmonary valve is not well visualized. VESSELS The inferior vena cava is normal in size. PERICARDIUM No pericardial effusion. Abdirahman Louis MD (Electronically Signed) Final Date:30 September 2017 16:44
--- NOTE | 2017-09-30 16:56 | MB ---
cc: Abdirahman Louis MD DATE: 09/30/2017 REASON FOR CONSULTATION: Dizziness, chest pain, syncope. HISTORY OF PRESENT ILLNESS: The patient is a 67-year-old white male with a history of coronary artery disease, apparently status post as many as 5 stents this year at the [facility], hyperlipidemia, hypertension, renal cancer, and transient ischemic attacks, who presented to the hospital, mainly with complaints of dizziness. The patient states for the past 3 months, he has had occasional episodes of lightheadedness, most often upon standing from the sitting position or upon getting out of bed. The lightheadedness however can last a fairly long time, even after standing. About 4 days ago while urinating, he felt severely lightheaded. When he pulled his pants up, he subsequently lost consciousness, he thinks just for a couple of seconds. Two months ago, he may have had a fleeting episode of syncope as well. The patient also reports intermittent episodes of left parasternal chest discomfort described as "just a pain." He is unclear as to the duration of these chest pains. Occasionally, they are associated with shortness of breath. He cannot recall whether these chest discomforts are similar to previous angina. In the last few days, he feels somewhat more dyspneic than usual. He denies pedal edema, paroxysmal nocturnal dyspnea, and palpitations. PAST MEDICAL HISTORY: 1. Coronary artery disease, status post possibly 5 stents this year at the [facility]. 2. Hyperlipidemia. 3. Hypertension. 4. Gastroesophageal reflux disease. 5. Left renal cancer, status post partial left nephrectomy. 6. Prostate cancer, status post prostatectomy. PAST SURGICAL HISTORY: 1. Prostatectomy. 2. Tonsillectomy. 3. Partial left nephrectomy. CARDIAC MEDICATIONS AT HOME: 1. Metoprolol 25 mg b.i.d. 2. Plavix 75 mg daily. 3. Isosorbide mononitrate 30 mg daily. 4. Aspirin 81 mg daily. 5. Atorvastatin 20 mg at bedtime. 6. The patient also was on amlodipine and lisinopril, which were stopped about 2 weeks ago due to complaints of hypotension. ALLERGIES: NO KNOWN DRUG ALLERGIES. FAMILY HISTORY: Noncontributory. SOCIAL HISTORY: The patient denies any history of alcohol or tobacco abuse. REVIEW OF SYSTEMS: As in the history of present illness, otherwise negative or noncontributory. He also denies headache, visual changes, unilateral weakness or numbness, abdominal pain, melena, and dyspepsia. Infrequently, he does experience bright red blood per rectum. PHYSICAL EXAMINATION: VITAL SIGNS: Blood pressure 208/103 with a pulse of 69, respirations 18. GENERAL: He is a well-developed, well-nourished white male, in no acute distress. NECK: Jugular venous pressure is normal. Carotid pulses are 2+ bilaterally without bruits. CHEST: Reveals clear lungs bah. CARDIAC: He has a regular rhythm and rate without S3, S4, or murmur. ABDOMEN: He has a soft, nontender abdomen. Bowel sounds are present. There is no definite hepatosplenomegaly. EXTREMITIES: Reveals no clubbing, cyanosis, or edema. DIAGNOSTIC STUDIES: EKG shows normal sinus rhythm, left atrial abnormality. Laboratory data includes WBC 9.4, hemoglobin 12.6, platelets 256. Potassium 3.1, BUN 18, creatinine 1.43. Negative cardiac enzymes. Chest x-ray shows minimal bibasilar parenchymal changes. IMPRESSION: Lightheadedness, recent syncope, overall atypical chest pains in this 67-year-old white male with a history of coronary artery disease, hyperlipidemia, hypertension, renal and prostate cancers. Much of his symptomatology with respect to lightheadedness and his recent syncope seems related to orthostatic-like symptoms. On the other hand, he has noticed no significant improvement in his symptoms after stopping lisinopril and amlodipine about 2 weeks ago. He has been maintained on metoprolol. He is mildly bradycardic on monitoring with no evidence for high degree atrioventricular block. The patient is now hypertensive. With respect to his chest discomforts, he is somewhat of a vague historian. They appear to be overall atypical for myocardial ischemia. On the other hand, he has had a number of percutaneous coronary interventions this year. EKG shows no acute abnormalities. RECOMMENDATIONS: 1. Continue his aspirin and Plavix. 2. Would try to resume amlodipine given his hypertension. 3. Check a Lexiscan nuclear stress test in the morning. 4. Consider the use of Florinef. MD ZAY Tello/BRETT , 04:30 PM , 04:55 PM ROD
[2017-09-30] MEDS ORDERED: DIAZEPAM 5 MG TAB PO ONE (17:30)
[2017-09-30] MEDS ORDERED: DIAZEPAM 5 MG TAB PO PRN (17:30)
[2017-09-30] MEDS ORDERED: NITROGLYCERIN 0.4 MG SL 25 TABS/BTL SL PRN (17:45)
[2017-09-30] MEDS: FLUDROCORTISONE ACETATE 0.1 MG TAB PO SCH (21:21)
[2017-10-01] VITALS (7 sets, daily range): BP systolic 103–209; BP diastolic 64–109; PULSE 62–73; RESP 18–20; TEMP 97.8–98.8; O2SAT 95–98
[2017-10-01] MEDS ORDERED: cloNIDine HCL 0.1 MG TAB PO ONE (00:15)
[2017-10-01] MEDS: ACETAMINOPHEN 325 MG TAB PO PRN ×3 (01:02→20:47)
[2017-10-01] MEDS ORDERED: ENALAPRILAT 2.5 MG/2 ML VIAL IV PUSH ONE (05:00)
[2017-10-01] MEDS: HEPARIN SODIUM - SQ 10,000 UNITS/ML VIAL SQ SCH ×3 (05:06→21:26)
[2017-10-01] MEDS: SODIUM CHLOR 0.9% 1000 ML INJ 1,000 ML IV SCH (05:07)
--- NOTE | 2017-10-01 07:44 | PD.CARD.PN ---
Subjective Subjective Remarks No dizziness last night or this morning. No syncope, CP, dyspnea, palpitations. Objective Medications Item Value Date Time Fludrocortisone 0.1 mg 09/30/17 2100 Acetate BID/PO 09/30/172120 (Florinef) Amlodipine 5 mg 09/30/17 1630 Besylate DAILY/PO 09/30/17 1723 (Norvasc) Aspirin 81 mg 09/30/17 0900 (Ecotrin Ec) DAILY/PO 09/30/1720 Clopidogrel 75 mg 09/30/17 0900 Bisulfate DAILY/PO 09/30/17919 (Plavix) Heparin Sodium 5,000 units 09/30/17 0600 (Porcine) Q8HR/SQ 10/01/17 0506 (Heparin Inj) Atorvastatin 20 mg 09/29/17 2330 Calcium HS/PO 09/30/172121 (Lipitor) Current Medications Medications (Trade) Dose Ordered Sig/Tiffanie Route Start Time Stop Time Status Last Admin (NS Flush) 2 ml UNSCH PRN IV FLUSH 09/29/17 23:30 (NS Flush) 2 ml BID IV FLUSH 09/30/17 09:00 09/30/17 09:19 (Zofran Inj) 4 mg Q6H PRN IVP 09/29/17 23:30 (Heparin Inj) 5,000 units Q8HR SQ 09/30/17 06:00 10/01/17 05:06 (Narcan Inj) 0.4 mg UNSCH PRN IV PUSH 09/29/17 23:30 (Ecotrin Ec) 81 mg DAILY PO 09/30/17 09:00 09/30/17 09:20 (Lipitor) 20 mg HS PO 09/29/17 23:30 09/30/17 21:22 (Plavix) 75 mg DAILY PO 09/30/17 09:00 09/30/17 09:20 (Marlena-Colace) 2 tab HS PO 09/29/17 23:30 09/30/17 21:22 (Desyrel) 50 mg HS PO 09/29/17 23:30 09/30/17 21:22 (Protonix) 20 mg DAILY PO 09/30/17 09:00 09/30/17 09:20 (Paxil) 30 mg HS PO 09/29/17 23:45 09/30/17 21:22 (Detrol La) 4 mg DAILY PO 09/30/17 09:00 09/30/17 09:20 (Pill Splitter) 1 ea UNSCH PRN OTHER 09/29/17 23:45 Sodium Chloride 1,000 ml @ 100 mls/hr Q10H IV 09/30/17 00:30 10/01/17 05:07 (Miralax) 17 gm DAILY PO 09/30/17 09:15 09/30/17 09:23 (Norvasc) 5 mg DAILY PO 09/30/17 16:30 09/30/17 17:23 (Florinef) 0.1 mg BID PO 09/30/17 21:00 09/30/17 21:21 (Valium) 5 mg Q12H PRN PO 09/30/17 17:30 (Nitrostat Sl) 0.4 mg Q5M PRN SL 09/30/17 17:45 (Tylenol) 650 mg Q4H PRN PO 10/01/17 00:30 10/01/17 01:02 Vital Signs / I&O Vital Signs Date Time Temp Pulse Resp B/P (MAP) Pulse Ox O2 Delivery O2 Flow Rate FiO2 10/01/17 06:21 186/92 (123) 10/01/17 03:52 97.9 62 20 204/99 (134) 95 09/30/17 23:23 97.8 98 20 216/106 (142) 96 09/30/17 20:28 97.6 20 210/109 (142) 95 160/86 (110) 126/70 (88) 09/30/17 19:01 69 219/105 (143) 09/30/17 18:58 68 222/115 (150) 09/30/17 16:48 97.7 65 20 216/107 (143) 93 09/30/17 15:15 68 09/30/17 12:24 97.8 69 18 208/103 (138) 94 09/30/17 08:33 97.6 64 18 206/103 (137) 95 181/87 (118) 109/64 (79) 09/30/17 08:05 61 I/O 09/30/17 09/30/17 09/30/17 10/01/17 10/01/17 10/01/17 07:00 15:00 23:00 07:00 15:00 23:00 Intake Total 940 ml 1000 ml Balance 940 ml 1000 ml Intake Oral 940 ml 1000 ml # Voids 4 Physical Exam GENERAL: Well developed, well nourished. No acute distress. HEENT: Jugular venous pressure is normal. CHEST: Lungs clear to auscultation anteriorly. CARDIAC: Regular rate and rhythm without S3, S4, or murmur. ABDOMEN: Soft, nontender, no hepatosplenomegaly. Bowel sounds present. EXTREMITIES: No clubbing, cyanosis, or edema. Laboratory Laboratory Tests Test 09/30/17 08:45 Total Creatine Kinase 37 U/L Troponin I LESS THAN 0.02 NG/ML Assessment and Plan Problem List: (1) Syncope ICD Codes: R55 - Syncope and collapse Status: Acute Plan: No recurrent syncope. Much of patient's lightheadedness past 3 months seems related to hypotension, often orthostatic in nature. Mildly bradycardic on admission, better off beta rosalina. REC continue Florinef, though will need very close monitoring of BP as outpatient increase amlodipine, consider resuming Lisinopril for now rec keep off beta rosalina patient OK for discharge from cardiac standpoint if nuclear stress test negative for ischemia and when BP's better Dr. Hale to see PRN over the weekend (2) CAD (coronary artery disease) ICD Codes: I25.10 - Atherosclerotic heart disease of [place] coronary artery without angina pectoris Status: Chronic Plan: No further atypical CP. For nuclear stress test this morning. (3) Hypertension ICD Codes: I10 - Essential (primary) hypertension Status: Chronic Plan: Suboptimal BP control. Rec increase amlodipine, consider resuming his SMITA-I. Code Status full code Discussed Condition With patient Problem Qualifiers (1) Syncope: Qualified Codes: R55 - Syncope and collapse (2) CAD (coronary artery disease): Qualified Codes: I25.119 - Atherosclerotic heart disease of [place] coronary artery with unspecified angina pectoris (3) Hypertension: Qualified Codes: I10 - Essential (primary) hypertension Abdirahman Louis MD Oct 01, 2017 07:44
[2017-10-01] MEDS: FLUDROCORTISONE ACETATE 0.1 MG TAB PO SCH (09:00)
[2017-10-01] MEDS: TOLTERODINE TARTRATE 4 MG CAP LA PO SCH (09:00)
--- NOTE | 2017-10-01 09:56 | HHI.PR ---
Subjective Remarks Follow-up on patient with hypertension, syncope, chest pain. Patient seen and examined. Patient going for nuclear stress test today. States he had some chest pain in the early evening yesterday but none overnight and none this morning. Denies any shortness of breath. Denies any fever or chills. Denies any dizziness or lightheadedness. Denies any nausea or vomiting. Denies any swelling in his lower extremities. Objective Vitals Vital Signs Date Time Temp Pulse Resp B/P (MAP) Pulse Ox O2 Delivery O2 Flow Rate FiO2 10/01/17 08:36 97.8 62 20 135/80 (98) 96 10/01/17 06:21 186/92 (123) 10/01/17 03:52 97.9 62 20 204/99 (134) 95 09/30/17 23:23 97.8 98 20 216/106 (142) 96 09/30/17 20:28 97.6 20 210/109 (142) 95 160/86 (110) 126/70 (88) 09/30/17 19:01 69 219/105 (143) 09/30/17 18:58 68 222/115 (150) 09/30/17 16:48 97.7 65 20 216/107 (143) 93 09/30/17 15:15 68 09/30/17 12:24 97.8 69 18 208/103 (138) 94 I/O 09/30/17 09/30/17 09/30/17 10/01/17 10/01/17 10/01/17 07:00 15:00 23:00 07:00 15:00 23:00 Intake Total 940 ml 1000 ml Balance 940 ml 1000 ml Intake Oral 940 ml 1000 ml # Voids 4 Result Diagram: 09/30/17 0335 09/30/17 0335 Imaging Last Impressions Chest X-Ray 09/29/17 193 Signed Impressions: Service Date/Time: Friday, September 29, 2017 20:00 - CONCLUSION: Mild bibasilar probable changes worse in the left, new from comparison study. No failure Brett Small MD FACR Objective Remarks GENERAL: Well-nourished, well-developed pleasant male patient in NAD. Awake and alert. Standing in room. SKIN: Warm and dry. No rash. HEENT: Normocephalic. Atraumatic. EOMI. Mucous membranes pink and moist. NECK: Supple. Trachea midline. CARDIOVASCULAR: Regular rate and rhythm. No murmur appreciated. RESPIRATORY: Nonlabored. Clear to auscultation. Breath sounds equal bilaterally. GASTROINTESTINAL: Abdomen soft, non-tender, nondistended. Normoactive bowel sounds x4. MUSCULOSKELETAL: No obvious deformities. Extremities without clubbing, cyanosis , or edema. NEUROLOGICAL: Awake and alert. No obvious cranial nerve deficits. Motor grossly within normal limits. Normal speech. PSYCHIATRIC: Appropriate mood and affect; insight and judgment normal. Medications and IVs Current Medications Medications (Trade) Dose Ordered Sig/Tiffanie Route Start Time Stop Time Status Last Admin (NS Flush) 2 ml UNSCH PRN IV FLUSH 09/29/17 23:30 (NS Flush) 2 ml BID IV FLUSH 09/30/17 09:00 09/30/17 09:19 (Zofran Inj) 4 mg Q6H PRN IVP 09/29/17 23:30 (Heparin Inj) 5,000 units Q8HR SQ 09/30/17 06:00 10/01/17 05:06 (Narcan Inj) 0.4 mg UNSCH PRN IV PUSH 09/29/17 23:30 (Ecotrin Ec) 81 mg DAILY PO 09/30/17 09:00 09/30/17 09:20 (Lipitor) 20 mg HS PO 09/29/17 23:30 09/30/17 21:22 (Plavix) 75 mg DAILY PO 09/30/17 09:00 09/30/17 09:20 (Marlena-Colace) 2 tab HS PO 09/29/17 23:30 09/30/17 21:22 (Desyrel) 50 mg HS PO 09/29/17 23:30 09/30/17 21:22 (Protonix) 20 mg DAILY PO 09/30/17 09:00 09/30/17 09:20 (Paxil) 30 mg HS PO 09/29/17 23:45 09/30/17 21:22 (Detrol La) 4 mg DAILY PO 09/30/17 09:00 09/30/17 09:20 (Pill Splitter) 1 ea UNSCH PRN OTHER 09/29/17 23:45 Sodium Chloride 1,000 ml @ 100 mls/hr Q10H IV 4/5/18 00:30 10/01/17 05:07 (Miralax) 17 gm DAILY PO 09/30/17 09:15 09/30/17 09:23 (Florinef) 0.1 mg BID PO 09/30/17 21:00 09/30/17 21:21 (Valium) 5 mg Q12H PRN PO 09/30/17 17:30 (Nitrostat Sl) 0.4 mg Q5M PRN SL 09/30/17 17:45 (Tylenol) 650 mg Q4H PRN PO 10/01/17 00:30 10/01/17 01:02 (Norvasc) 10 mg DAILY PO 10/01/17 09:00 A/P Assessment and Plan 67-year-old male with history of HTN, HLD, CAD s/p stents 5 placed one month ago, prostate cancer, previous renal cell carcinoma, presents with hypotension, syncope, and chest pain. Symptomatic Hypotension with Syncope: BP reportedly 60/40s at home, arrived with BP 92/52. Likely secondary to multiple antihypertensives. -Held all of patient's antihypertensives including imdur, metoprolol, amlodipine, lisinopril, and also hold patient's Valium -hypertensive overnight with BP 216/106 after starting on Florinef per Cardiology. Better this morning, 135/80 but then became uncontrolled prior to MPS. Hold Florinef. Norvasc dose increased. -Orthostatic vital signs positive -Give IVF hydration -Monitor on telemetry -Echocardiogram 60-65%. Normal left ventricular size. Mild concentric left ventricular hypertrophy. No regional wall motion abnormalities are present. [id number] mitral valve regurgitation. Mild aortic valve sclerosis is present. Trace-mild aortic regurgitation. -Strongly suspect syncope secondary to hypotension; symptoms resolved with resolution of hypotension -PT eval/tx Chest pain with hx of CAD s/p stents: concern for unstable angina. Patient reported cardiac cath with 5stents placed 1 month ago. Now having intermittent chest pressure, relieved by nitro at home. -ACS ruled out with negative serial cardiac enzymes x3 -EKG without acute ischemic changes -Monitor on telemetry -Continue aspirin/plavix; holding BB/SMITA/Imdur secondary to hypotension -Cardiology following, for nuclear stress test this am, if neg may be discharged. Keep off BB. Continue on Florinef - on hold now secondary to uncontrolled BP. Increase Norvasc dose. Monitor BPs closely. Consider resuming ACEI. -Obtain records from previous cardiac catheterization at the [facility] Hyperlipidemia: chronic -Continue home statin BPH/prostate cancer: chronic -Continue home Flomax Acute kidney injury: likely chronic component. Creatinine 1.57, previously 1.28 in February 2017 -creatinine improved s/p IVF -Avoid nephrotoxins -Monitor renal function -Continue IV fluid hydration Hypokalemia -K 3.1 -given po repletion -repeat BMP to monitor response DVT Prophylaxis: Heparin sq Discharge Planning Possible discharge later today pending results of nuclear stress test, cardiology clearance and improvement in blood pressure Amanda Hurtado Oct 01, 2017 09:56
[2017-10-01] MEDS ORDERED: REGADENOSON INJ 0.4 MG/5 ML SYR ONE (10:46)
--- NOTE | 2017-10-01 13:24 | RADRPT ---
EXAM DATE/TIME: 10/01/2017 10:11 [facility] COMPARISON: No previous studies available for comparison. INDICATIONS : Coronary artery disease. Coronary atherosclerosis. DOSE: 25.6 mCi Tc99m Myoview at stress. 8.5 mCi Tc99m Myoview at rest. 0.4 mg Lexiscan STRESS SYMPTOMS: Asymptomatic. EJECTION FRACTION: 57% MEDICAL HISTORY : Hypertension. Carcinoma, prostate. Renal cancer. SURGICAL HISTORY : CABG Nephrectomy, left. Prostatectomy. ENCOUNTER: Initial ACUITY: 3 days PAIN SCALE: 2/10 LOCATION: Bilateral chest TECHNIQUE: The patient underwent pharmacologic stress with infusion of prescribed dose. Continuous ECG tracing was monitored during stress. Gated SPECT imaging was performed after stress and conventional SPECT i maging was performed at rest. The examination was performed on a SPECT/CT scanner, both attenuation and non-corrected datasets were reviewed. The stress data set was motion corrected. FINDINGS: DISTRIBUTION: The maximum perfused segment at stress is in the inferior wall. PERFUSION STUDY: There is a small sized moderate severity perfusion defect involving the basal segment of the anterior wall with decrease in perfusion in the order of 40% less than the best perfused wall. There is evid ence of redistribution in this segment. The summed stress score is 6. GATED STUDY: There is intact wall motion and thickening without hypokinetic or dyskinetic segments. CONCLUSION: 1. Evidence of stress-induced ischemia with small reversible perfusion defect in the basal anterior w all. 2. Intact wall motion with 57% ejection fraction. RISK CATEGORY: Low (<1% Annual Mortality Rate) Vincent Joseph MD on October 01, 2017 at 13:18 Board Certified Radiologist. This report was verified electronically.
[2017-10-01] MEDS: SODIUM CHLORIDE 0.9% FLUSH 10 ML FLUSH IV FLUSH SCH ×2 (13:34→21:27)
[2017-10-01] MEDS: PANTOPRAZOLE SOD 20 MG DELAYED RELEASE TAB PO SCH (13:39)
[2017-10-01] MEDS: CLOPIDOGREL 75 MG TAB PO SCH (13:39)
[2017-10-01] MEDS: ASPIRIN EC 81 MG TABEC PO SCH (13:39)
[2017-10-01 15:14] LABS: BICARBONATE 28.9 MEQ/L (21.0-32.0); CALCIUM 8.9 MG/DL (8.5-10.1); CREATININE 1.15 MG/DL (0.60-1.30)
[2017-10-01] MEDS: POLYETHYLENE GLYCOL 17 GM PKG PO SCH (15:14)
[2017-10-01] MEDS ORDERED: POTASSIUM CHLORIDE 10 MEQ CONTROLLED RELEASE TAB PO ONE (18:30)
[2017-10-01] MEDS ORDERED: ENALAPRILAT 1.25 MG/ML VIAL IV PUSH ONE (21:00)
[2017-10-01] MEDS: ATORVASTATIN 20 MG TAB PO SCH (21:27)
[2017-10-01] MEDS: traZODone HCL 50 MG TAB PO SCH (21:27)
[2017-10-01] MEDS: DOCUSATE SODIUM 50 MG/SENNA 8.6 MG TAB PO SCH (21:27)
[2017-10-01] MEDS: PARoxetine HCL 20 MG TAB PO SCH (21:30)
[2017-10-02] VITALS (8 sets, daily range): BP systolic 99–231; BP diastolic 51–108; PULSE 62–80; RESP 18–20; TEMP 97.3–98.2; O2SAT 94–98
[2017-10-02] MEDS: ACETAMINOPHEN 325 MG TAB PO PRN (00:55)
[2017-10-02] MEDS: HEPARIN SODIUM - SQ 10,000 UNITS/ML VIAL SQ SCH ×3 (04:10→21:28)
[2017-10-02] MEDS ORDERED: cloNIDine HCL 0.1 MG TAB PO ONE (04:15)
[2017-10-02] MEDS: ISOSORBIDE MONONITRATE 60 MG CR TAB (IMDUR) PO SCH (06:35)
[2017-10-02 08:49] LABS: BICARBONATE 27.4 MEQ/L (21.0-32.0); CALCIUM 8.3 MG/DL (8.5-10.1); CREATININE 1.13 MG/DL (0.60-1.30)
[2017-10-02] MEDS: POLYETHYLENE GLYCOL 17 GM PKG PO SCH (09:00)
[2017-10-02] MEDS: CLOPIDOGREL 75 MG TAB PO SCH (09:57)
[2017-10-02] MEDS: ASPIRIN EC 81 MG TABEC PO SCH (09:57)
[2017-10-02] MEDS: PANTOPRAZOLE SOD 20 MG DELAYED RELEASE TAB PO SCH (09:57)
[2017-10-02] MEDS: TOLTERODINE TARTRATE 4 MG CAP LA PO SCH (09:57)
[2017-10-02] MEDS: SODIUM CHLORIDE 0.9% FLUSH 10 ML FLUSH IV FLUSH SCH ×2 (09:58→21:29)
[2017-10-02] MEDS ORDERED: POTASSIUM CHLORIDE 20 MEQ CONTROLLED RELEASE TAB PO ONE (10:00)
[2017-10-02] MEDS ORDERED: KETOROLAC TROMETHAMINE 10 MG TAB PO ONE (16:30)
[2017-10-02] MEDS ORDERED: KETOROLAC TROMETHAMINE 10 MG TAB PO PRN (16:30)
--- NOTE | 2017-10-02 17:04 | HHI.PR ---
Subjective Remarks Patient c/o bifrontal headache. Patient and are asking on why is the patient npo. Patient denies cp/sob Afebrile Denies dizziness says stood up today and did not feel dizzy. Objective Vitals Vital Signs Date Time Temp Pulse Resp B/P (MAP) Pulse Ox O2 Delivery O2 Flow Rate FiO2 10/02/17 15:37 97.5 70 20 137/72 (93) 98 107/57 (74) 105/51 (69) 10/02/17 09:04 98.2 80 20 130/73 (92) 98 10/02/17 06:17 62 210/101 (137) 204/102 (136) 10/02/17 05:46 63 10/02/17 03:40 98.2 62 18 231/108 (149) 97 222/104 (143) 10/02/17 00:03 69 10/01/17 23:26 98.2 70 18 196/96 (129) 95 188/92 (124) 10/01/17 20:31 71 10/01/17 20:14 98.2 73 18 209/109 (142) 95 175/89 (117) 117/68 (84) I/O 10/01/17 10/01/17 10/01/17 10/02/17 10/02/17 10/02/17 07:00 15:00 23:00 07:00 15:00 23:00 Intake Total 1000 ml Output Total 450 ml 220 ml Balance 1000 ml -450 ml -220 ml Intake Oral 1000 ml Output Urine Total 450 ml 220 ml Result Diagram: 09/30/17 0335 10/02/17 0634 Imaging Last Impressions Myocardial Perfusion Scan Nuc Med 10/01/17 0000 Signed Impressions: Service Date/Time: Sunday, October 01, 2017 10:11 - CONCLUSION: 1. Evidence of stress-induced ischemia with small reversible perfusion defect in the basal anterior wall. 2. Intact wall motion with 57%% ejection fraction. RISK CATEGORY: Low (<1%% Annual Mortality Rate) Vincent Joseph MD Chest X-Ray 09/29/17 193 Signed Impressions: Service Date/Time: Friday, September 29, 2017 20:00 - CONCLUSION: Mild bibasilar probable changes worse in the left, new from comparison study. No failure Brett Small MD FACR Objective Remarks AAOx3 nad PERRLA clear lungs Bl S1s2 + RRR, no MRG abdomen, soft, non tender, non distended no edema in lower extremities Medications and IVs Current Medications Medications (Trade) Dose Ordered Sig/Tiffanie Route Start Time Stop Time Status Last Admin (NS Flush) 2 ml UNSCH PRN IV FLUSH 09/29/17 23:30 (NS Flush) 2 ml BID IV FLUSH 09/30/17 09:00 10/02/17 09:58 (Zofran Inj) 4 mg Q6H PRN IVP 09/29/17 23:30 (Heparin Inj) 5,000 units Q8HR SQ 09/30/17 06:00 10/02/17 14:00 (Narcan Inj) 0.4 mg UNSCH PRN IV PUSH 09/29/17 23:30 (Ecotrin Ec) 81 mg DAILY PO 09/30/17 09:00 10/02/17 09:57 (Lipitor) 20 mg HS PO 09/29/17 23:30 10/01/17 21:27 (Plavix) 75 mg DAILY PO 09/30/17 09:00 10/02/17 09:57 (Marlena-Colace) 2 tab HS PO 09/29/17 23:30 10/01/17 21:27 (Desyrel) 50 mg HS PO 09/29/17 23:30 10/01/17 21:27 (Protonix) 20 mg DAILY PO 09/30/17 09:00 10/02/17 09:57 (Paxil) 30 mg HS PO 09/29/17 23:45 10/01/17 21:30 (Detrol La) 4 mg DAILY PO 09/30/17 09:00 10/02/17 09:57 (Pill Splitter) 1 ea UNSCH PRN OTHER 09/29/17 23:45 (Miralax) 17 gm DAILY PO 09/30/17 09:15 10/01/17 15:14 (Florinef) 0.1 mg BID PO 09/30/17 21:00 Future hold 09/30/17 21:21 (Valium) 5 mg Q12H PRN PO 09/30/17 17:30 10/01/17 13:37 (Nitrostat Sl) 0.4 mg Q5M PRN SL 09/30/17 17:45 (Tylenol) 650 mg Q4H PRN PO 10/01/17 00:30 10/02/17 00:55 (Norvasc) 10 mg DAILY PO 10/01/17 09:00 10/02/17 09:56 (Imdur) 60 mg DAILY@07 PO 10/02/17 07:00 10/02/17 06:35 (Toradol) 10 mg Q6H PRN PO 10/02/17 16:30 10/07/17 16:29 A/P Problem List: (1) Syncope ICD Code: R55 - Syncope and collapse Status: Acute Plan: The patient initially presented with hypotension with a blood pressure reportedly in the 60s over 40s at home. When the patient arrived to the ED his blood pressure was 92/50. Likely secondary to medication side effect due to multiple antihypertensives. Initially all the patient's antihypertensive medications including Imdur, metoprolol, amlodipine, lisinopril were held. Patient's Valium was also held. The patient then became hypotensive overnight with a blood pressure of 216/106 after starting Florinef per cardiology. Patient's Florinef was then held and Norvasc dose increased. 2D echocardiogram was obtained it showed an EF of 60-65% with a normal left ventricular size, mild concentric left ventricular hypertrophy, no regional wall motion abnormalities. Trace to mild mitral valve regurgitation. Mild aortic valve sclerosis. Trace mild aortic regurgitation. (2) Orthostatic hypotension ICD Code: I95.1 - Orthostatic hypotension Plan: Orthostatic vital signs positive. Patient's blood pressure has been very labile with a systolic blood pressure in the 200s systolic. Blood pressure today is better, however patient still has positive orthostatic hypotension. I will resume Florinef and keep close monitoring of blood pressure. Continue amlodipine 10 minutes p.o. daily, as per cardiology recommendations will consider resuming SMITA inhibitor. (3) Chest pain ICD Code: R07.9 - Chest pain, unspecified Plan: Etiology consulted. Troponin negative 3. EKG reviewed by me showed a sinus rhythm with first-degree AV block with ventricular rate of 60 bpm, no ST-T changes suggestive of active ischemia. The patient underwent a nuclear stress testing which showed evidence of stress- induced ischemia with small reversible perfusion defect in the basal anterior wall. Intact wall motion with 57% ejection fraction. Cardiology recommended medical management with isosorbide mononitrate 60 mg p.o. daily. (4) Hyperlipidemia ICD Code: E78.5 - Hyperlipidemia, unspecified Plan: Continue statin. (5) BPH (benign prostatic hyperplasia) ICD Code: N40.0 - Benign prostatic hyperplasia without lower urinary tract symptoms Plan: Resume Flomax. (6) Prostate cancer ICD Code: C61 - Malignant neoplasm of prostate Status: Chronic Plan: Status post history of prostatectomy. (7) CARLY (acute kidney injury) ICD Code: N17.9 - Acute kidney failure, unspecified Status: Resolved Plan: Creatinine elevated on admission at 1.57. Treated with IV fluids. Suspect prerenal azotemia. Creatinine stable. Continue to monitor BUN and creatinine, strict I's and O's, avoid nephrotoxins. Patient has history of left nephrectomy due to renal cell carcinoma. (8) Hypokalemia ICD Code: E87.6 - Hypokalemia Plan: We will replace potassium orally continue to monitor BMP. Assessment and Plan GI prophylaxis: On PPI. Continue. Discharge Planning Continue to observe on the medical unit. Discharge pending a stabilization of blood pressure. Problem Qualifiers (1) Syncope: Qualified Codes: R55 - Syncope and collapse (2) Hyperlipidemia: Qualified Codes: E78.5 - Hyperlipidemia, unspecified (3) BPH (benign prostatic hyperplasia): Qualified Codes: N40.0 - Benign prostatic hyperplasia without lower urinary tract symptoms Carlos Reilly MD Oct 02, 2017 17:04
[2017-10-02] MEDS: traZODone HCL 50 MG TAB PO SCH (21:25)
[2017-10-02] MEDS: DOCUSATE SODIUM 50 MG/SENNA 8.6 MG TAB PO SCH (21:25)
[2017-10-02] MEDS: PARoxetine HCL 20 MG TAB PO SCH (21:26)
[2017-10-02] MEDS: ATORVASTATIN 20 MG TAB PO SCH (21:27)
[2017-10-02] MEDS: FLUDROCORTISONE ACETATE 0.1 MG TAB PO SCH (22:30)
[2017-10-03] VITALS: PULSE 71
[2017-10-03 03:23] VITALS: BP 140/78; PULSE 69; RESP 16; TEMP 97.9; O2SAT 94
[2017-10-03] MEDS: HEPARIN SODIUM - SQ 10,000 UNITS/ML VIAL SQ SCH (05:34)
[2017-10-03] MEDS: ISOSORBIDE MONONITRATE 60 MG CR TAB (IMDUR) PO SCH (06:29)
[2017-10-03 07:00] VITALS: PULSE 74
[2017-10-03 08:36] VITALS: BP_SYST 127; BP_SYST 138; BP_DIAS 64; BP_DIAS 76; PULSE 70; RESP 18; TEMP 98.6; O2SAT 98
[2017-10-03] MEDS: TOLTERODINE TARTRATE 4 MG CAP LA PO SCH (09:00)
[2017-10-03] MEDS: POLYETHYLENE GLYCOL 17 GM PKG PO SCH (10:11)
[2017-10-03] MEDS: ASPIRIN EC 81 MG TABEC PO SCH (10:12)
[2017-10-03] MEDS: PANTOPRAZOLE SOD 20 MG DELAYED RELEASE TAB PO SCH (10:12)
[2017-10-03] MEDS: CLOPIDOGREL 75 MG TAB PO SCH (10:13)
[2017-10-03] MEDS: FLUDROCORTISONE ACETATE 0.1 MG TAB PO SCH (10:14)
[2017-10-03] MEDS: SODIUM CHLORIDE 0.9% FLUSH 10 ML FLUSH IV FLUSH SCH (10:16)
[2017-10-03] MEDS: ACETAMINOPHEN 325 MG TAB PO PRN (10:20)
[2017-10-03] MEDS ORDERED: ISOS60TA PO (12:31)
[2017-10-03] MEDS ORDERED: AMLO10TA2 PO (12:31)
--- NOTE | 2017-10-03 12:33 | HHI.DCPOC ---
Discharge Care Plan Diagnosis: (1) Hypokalemia (2) Orthostatic hypotension (3) Syncope (4) Hyperlipidemia (5) Prostate cancer (6) Chest pain (7) CARLY (acute kidney injury) (8) CAD (coronary artery disease) Goals to Promote Your Health * To prevent worsening of your condition and complications * To maintain your health at the optimal level Directions to Meet Your Goals Take your medications as prescribed Follow your dietary instruction Follow activity as directed Keep your appointments as scheduled Take your immunizations and boosters as scheduled If your symptoms worsen call your PCP, if no PCP go to Urgent Care Center or Emergency Room Smoking is Dangerous to Your Health. Avoid second hand smoke Call the 24-hour hour crisis hotline for domestic abuse at Carlos Reilly MD Oct 03, 2017 12:33
--- NOTE | 2017-10-03 12:35 | HHI.FF ---
Face to Face Verification Diagnosis: (1) Orthostatic hypotension (2) Syncope Physical Therapy Order: Improve ambulation, Strength and gait training Home Health Nursing Order: Nursing assessment with vital signs I have seen patient Alexandre Barton on 10/03/17. My clinical findings support the need for the requested home health care services because: High risk of falls I certify that my clinical findings support that this patient is homebound because: Unsteady gait/balance Unsafe to leave home unassisted Unable to use public transportation Carlos Reilly MD Oct 03, 2017 12:35
--- NOTE | 2017-10-03 12:37 | HHI.DS ---
Discharge Summary Admission Date Sep 29, 2017 at 23:01 Discharge Date: Oct 03, 2017 Admitting Diagnosis HYPOTENSION DIZZINESS (1) Syncope ICD Code: R55 - Syncope and collapse Status: Acute (2) Orthostatic hypotension ICD Code: I95.1 - Orthostatic hypotension (3) Chest pain ICD Code: R07.9 - Chest pain, unspecified (4) Hyperlipidemia ICD Code: E78.5 - Hyperlipidemia, unspecified (5) BPH (benign prostatic hyperplasia) ICD Code: N40.0 - Benign prostatic hyperplasia without lower urinary tract symptoms (6) Prostate cancer ICD Code: C61 - Malignant neoplasm of prostate Status: Chronic (7) CARLY (acute kidney injury) ICD Code: N17.9 - Acute kidney failure, unspecified Status: Resolved (8) Hypokalemia ICD Code: E87.6 - Hypokalemia Brief History - From Admission 67-year-old male with a past medical history significant for hypertension, coronary artery disease, prostate cancer and history of renal cell carcinoma presents to the emergency department for hypotension and syncopal event. The patient reports that for approximately the last month his blood pressure has been running in the 60s/40s. He endorses routine dizziness upon standing. He states that yesterday when he got out of bed to use the restroom he had a syncopal event while standing at the toilet. He states he lost consciousness and fell backward. Denies any head trauma or pain. Patient also endorses intermittent chest pain for the past 2-3 days. He states that is now resolved. He has accompanying shortness of breath. He also complains of constipation. No nausea/vomiting/diarrhea. No abdominal pain. No lateralizing signs/ symptoms. CBC/BMP: 09/30/17 0335 10/02/17 0634 Significant Findings Laboratory Tests Test 10/01/17 07:23 10/01/17 13:57 10/02/17 06:34 Potassium Level 3.3 MEQ/L (3.5-5.1) 3.2 MEQ/L (3.5-5.1) Estimat Glomerular Filtration Rate 63 ML/MIN (>89) 64 ML/MIN (>89) Calcium Level 8.3 MG/DL (8.5-10.1) Imaging Last Impressions Myocardial Perfusion Scan Nuc Med 10/01/17 0000 Signed Impressions: Service Date/Time: Sunday, October 01, 2017 10:11 - CONCLUSION: 1. Evidence of stress-induced ischemia with small reversible perfusion defect in the basal anterior wall. 2. Intact wall motion with 57%% ejection fraction. RISK CATEGORY: Low (<1%% Annual Mortality Rate) Vincent Joseph MD Chest X-Ray 09/29/17 1939 Signed Impressions: Service Date/Time: Friday, September 29, 2017 20:00 - CONCLUSION: Mild bibasilar probable changes worse in the left, new from comparison study. No failure Brett Small MD FACR PE at Discharge AAOx3 nad PERRLA clear lungs Bl S1s2 + RRR, no MRG abdomen, soft, non tender, non distended no edema in lower extremities Pt Condition on Discharge: Stable Discharge Disposition: Disch w/ Home Health Serv Discharge Time: > 30 minutes Discharge Instructions DIET: Follow Instructions for: As Tolerated, No Restrictions Activities you can perform: See Additionl Instruction Other Activity Instructions: OOB with assistance wait 2 to 3 minutes when going from lying down to sitting and another 2 to 3 minutes to stand up and walk. Follow up Referrals: [facility] Follow[facility] New Medications: Isosorbide Mononitrate ER (Isosorbide Mononitrate ER) 60 Mg Tab 60 MG PO DAILY@07 for cad, #30 TAB Continued Medications: Amlodipine (Amlodipine) 10 Mg Tab 10 MG PO DAILY for Blood Pressure Management, #30 TAB 0 Refills (This prescription has been renewed) Aspirin DR (Aspirin 81) 81 Mg Tabdr 81 MG PO DAILY, TAB 0 Refills Atorvastatin (Atorvastatin) 20 Mg Tab 20 MG PO HS for Cholesterol Management, #30 TAB 0 Refills Calcium Carbonate (Calcium Carbonate) 1,500 Mg Tab 1500 MG PO BID for Calcium Supplement, TAB 0 Refills 1,500 mg calcium carbonate (600 mg elemental calcium) Cholecalciferol (Vitamin D3) 1,000 Unit Tab 1000 UNITS PO DAILY for Nutritional Supplement, #1 BOTTLE 0 Refills Clopidogrel (Plavix) 75 Mg Tab 75 MG PO DAILY for Blood Clot Prevention, #30 TAB 0 Refills Diazepam (Diazepam) 5 Mg Tab 5 MG PO BID PRN for MILD ANXIETY, TAB 0 Refills Finasteride (Finasteride) 5 Mg Tab 5 MG PO DAILY for Manage Prostate Problems, #30 TAB 0 Refills Do not crush. Omeprazole (Omeprazole) 20 Mg Tab 20 MG PO DAILY, #30 TAB 0 Refills Paroxetine (Paroxetine) 30 Mg Tab 30 MG PO HS, #30 TAB 0 Refills Polyethylene Glycol 3350 Powder (Polyethylene Glycol 3350 Powder) 17 Gram Pow 17 GM PO DAILY for Constipation, #1 BOTTLE 0 Refills Sennosides-Docusate Sodium (Docusate Sodium-Senna) 8.6-50 Mg Tab 2 TAB PO HS for Prevent Constipation, #60 TAB 0 Refills Tamsulosin (Tamsulosin) 0.4 Mg Cap 0.4 MG PO HS for Manage Prostate Problems, #30 CAP 0 Refills Trazodone (Trazodone) 50 Mg Tab 50 MG PO HS for Control Depression, #30 TAB 0 Refills Trospium ER (Trospium ER) 60 Mg Cap 20 MG PO BID for Urinary Symptom Managemen, #30 CAP 0 Refills Discontinued Medications: Isosorbide Mononitrate (Isosorbide Mononitrate) 20 Mg Tab 30 MG PO DAILY for Prevent Chest Pain, #60 TAB 0 Refills Take 2 doses 7 hours apart. Lisinopril (Lisinopril) 40 Mg Tab 40 MG PO DAILY for Blood Pressure Management, #30 TAB 0 Refills Metoprolol Tartrate (Metoprolol Tartrate) 25 Mg Tab 25 MG PO BID, #60 TAB 0 Refills Trospium ER (Trospium ER) 60 Mg Cap 20 MG PO DAILY for Urinary Symptom Managemen, #30 CAP 0 Refills Carlos Reilly MD Oct 03, 2017 12:37
[2017-10-03 12:41] VITALS: BP 128/75; PULSE 72; TEMP 97.6; O2SAT 98
== END 2017-10-03 16:41 | disposition home or self-care (01) ==
LOC: NEPC 16:00 → NEDA 23:01 → NEPHCDU 09-30 00:43
PROVIDERS: ADMIT Hospitalist; ATTEND Hospitalist
DX: I95.1 Orthostatic hypotension (principal); E87.6 Hypokalemia; E78.5 Hyperlipidemia, unspecified; N17.9 Acute kidney failure, unspecified; N18.9 Chronic kidney disease, unspecified; I12.9 Hypertensive chronic kidney disease with stage 1 through stage 4 chronic kidney disease, or unspecified chronic kidney disease; C61 Malignant neoplasm of prostate; I25.10 Atherosclerotic heart disease of native coronary artery without angina pectoris; N40.0 Benign prostatic hyperplasia without lower urinary tract symptoms; R07.89 Other chest pain; K59.00 Constipation, unspecified; R06.02 Shortness of breath; W19.XXXA Unspecified fall, initial encounter; Z86.73 Personal history of transient ischemic attack (TIA), and cerebral infarction without residual deficits; Z85.528 Personal history of other malignant neoplasm of kidney; Z82.49 Family history of ischemic heart disease and other diseases of the circulatory system
CPT/HCPCS: 71045; 78452; 80048; 80053; 81001; 82533; 82550; 83690; 83735; 83880; 84484; 85025; 93005; 93017; 93306; 96361; 96372; 96374; 96376; 97110; 97116; 97163; 97167; 97530; 99285; A9502; G0378; G8987; G8988; J1644; J2785; J7030